=== PATIENT | male | born 1995 | race Caucasian/White ===

== ENCOUNTER 2016-11-21 19:15 | Emergency (ER) | payer OTHER ==
[~2016-11-21] VITALS: Ht 180.3 cm; Wt 64.5 kg
[2016-11-21 19:21] VITALS: Ht 180.3 cm; Wt 64.5 kg
--- NOTE | 2016-11-21 21:28 | ERD ---
ER Documentation Chief Complaint Date/Time DATE: 11/21/16 TIME: 21:19 Chief Complaint left testicular redness with pain x1 week, no abscess noted HPI 21 yo male comes in with left testicular pain for the past 2-3 days. He states it is achy, at the base of the left testicle, nonradiating. He has not had any discharge, painful urination, swelling. No difficulty voiding. He denies any history of recent sexual activity. ROS All systems reviewed and are negative except as per history of present illness. Medications Home Meds Active Scripts Ibuprofen* (Motrin*) 600 Mg Tab, 600 MG PO Q6, #30 TAB Prov:ELSA YAN PA-C 11/21/16 Allergies Allergies: Coded Allergies: No Known Allergy (Unverified , 11/21/16) Physical Exam Vitals Vital Signs Date Time Temp Pulse Resp B/P Pulse Ox O2 Delivery O2 Flow Rate FiO2 11/21/16 19:21 99.5 93 18 145/96 97 Physical Exam General: Well-developed, well-nourished. The patient appears in no acute distress. HEENT: Head is normocephalic, atraumatic. No scleral icterus. Neck: Supple. Nontender. Lungs: Clear to auscultation. Normal air movement. Heart: Regular rate and rhythm. S1 and S2 are normal. No murmurs, gallops, or rubs. Abdomen: Soft, nontender, nondistended. Bowel sounds are normoactive. : left testicular pain at the base of the testicle. There is swelling, no erythema, epididymides are nontender. No masses appreciated. Cremasteric reflex intact. Extremities: No clubbing or cyanosis. Normal pulses. Moving extremities x 4. No weakness. Neurologic: Alert and oriented 3. No focal deficits. Skin: Normal turgor. No rash or lesions. Results 24 hrs Laboratory Tests Test 11/21/16 21:21 Urine Color YELLOW Urine Clarity CLEAR Urine pH 7.0 Urine Specific [place] 1.011 Urine Ketones NEGATIVEmg/dL Urine Nitrite NEGATIVEmg/dL Urine Bilirubin NEGATIVEmg/dL Urine Urobilinogen NEGATIVEmg/dL Urine Leukocyte Esterase NEGATIVELeu/ul Urine Hemoglobin NEGATIVEmg/dL Urine Glucose NEGATIVEmg/dL Urine Total Protein NEGATIVEmg/dl DIAGNOSTIC IMAGING REPORT Patient: SADIA DONAHUE : 1995 Age: 21 Sex: M MR #: [id number] DOS: 11/21/16 0000 Ordering MD: ELSA YAN PA-C Location: [facility] Room/Bed: PROCEDURE: Ultrasound of the scrotum. CLINICAL INDICATION: Left testicular pain TECHNIQUE: Ultrasound of the scrotum was performed utilizing color Doppler flow imaging COMPARISON: There are no similar studies submitted for comparison. FINDINGS: Right testis: Size (cm): 4.3 x 1.9 x 3.8 Echotexture: Normal Doppler flow: Present Epididymal head: Unremarkable Hydrocele: None Varicocele: None Left testis: Size (cm): 4.3 x 2 x 3 Echotexture: Normal Doppler flow: Present Epididymal head: Unremarkable Hydrocele: None Varicocele: None IMPRESSION: No evidence of testicular torsion. RPTAT: HIKT .Orlando Enriquez MD, MD Date Time Electronically viewed and signed by .Orlando Enriquez MD, MD on 11/21/2016 22:52 .T/ CC: ELSA YAN PA-C Procedures/MDM 21-year-old male comes in with left-sided testicular pain, patient does not recall any eliciting factors including trauma. His examination shows tenderness at the base of the testicle, there is no epididymal pain, there is no erythema, warmth, swelling or signs of infection. Clinically, he does not have any severe pain, there is tenderness to palpation only. Testicular ultrasound was negative for torsion, also negative for masses. Urine was negative for infection the patient states that he has not had any recent sexual encounters put him at risk for epididymitis or urethritis or urinary tract infection. Urine will be sent for gonorrhea and chlamydia. He was given a copies of his urine results as well as an ultrasound. He is to take ibuprofen for pain and recheck for any worsening or new symptoms sooner. Departure Diagnosis: Primary Impression: Testicular pain Condition: Good ELSA YAN PA-C Nov 21, 2016 21:28
[2016-11-21 21:37] LABS: ADD UMIC NO; UR ASCORBIC ACID NEGATIVE (NEGATIVE); UR BILIRUBIN (Dip) NEGATIVE (NEGATIVE); UR BLOOD (Dip) NEGATIVE (NEGATIVE); UR CLARITY CLEAR (CLEAR); UR COLOR YELLOW (YELLOW); UR GLUCOSE (Dip) NEGATIVE (NEGATIVE); UR KETONES (Dip) NEGATIVE (NEGATIVE); UR LEUKOCYTE ESTERASE (Dip) NEGATIVE Leu/ul (NEGATIVE); UR NITRITE (Dip) NEGATIVE (NEGATIVE); UR SPECIFIC GRAVITY (Dip) 1.011 (1.003-1.030); UR TOTAL PROTEIN (Dip) NEGATIVE (NEGATIVE); UR UROBILINOGEN (Dip) NEGATIVE (NEGATIVE)
--- NOTE | 2016-11-21 22:53 | RADRPT ---
PROCEDURE: Ultrasound of the scrotum. CLINICAL INDICATION: Left testicular pain TECHNIQUE: Ultrasound of the scrotum was performed utilizing color Doppler flow imaging COMPARISON: There are no similar studies submitted for comparison. FINDINGS: Right testis: Size (cm): 4.3 x 1.9 x 3.8 Echotexture: Normal Doppler flow: Present Epididymal head: Unremarkable Hydrocele: None Varicocele: None Left testis: Size (cm): 4.3 x 2 x 3 Echotexture: Normal Doppler flow: Present Epididymal head: Unremarkable Hydrocele: None Varicocele: None IMPRESSION: No evidence of testicular torsion. RPTAT: HIKT .Orlando Enriquez MD, MD Date Time Electronically viewed and signed by .Orlando Enriquez MD, on 11/21/2016 22:52 .T/
[2016-11-21] MEDS ORDERED: IBUP-1542 PO (23:15)
[2016-11-21 23:24] VITALS: BP 134/78; PULSE 81; RESP 18
== END 2016-11-21 23:25 | disposition home or self-care (01) ==
LOC: FTE 19:15
DX: N50.812 Left testicular pain (principal)
CPT/HCPCS: 76870; 81003; 87591; Z7502